=== PATIENT | female | born 1985 | race Caucasian/White ===

== ENCOUNTER 2017-05-20 11:07 | Emergency (ER) | payer SELFPAY ==
[~2017-05-20] VITALS: Ht 157.5 cm; Wt 70.0 kg
[2017-05-20 11:08] VITALS: BP 215/104; PULSE 89; RESP 16; TEMP 98.2; O2SAT 98
--- NOTE | 2017-05-20 11:29 | PD ---
HPI Chief Complaint: Oral / Dental Pain or Problem Time Seen by Provider: 11:24 Travel History International Travel<30 days: No Contact w/Intl Traveler<30days: No Traveled to known affect area: No History of Present Illness HPI 31-year-old female presents to the emergency department for evaluation of possible peritonsillar abscess. Patient states that she was admitted for approximate 4 days to [facility] in [place], [place]. She was discharged on Monday. She states that she has had some worsening pain recently. She reports decreased appetite. She denies any fevers, states she has not checked her temperature. Patient states that she has had multiple episodes of peritonsillar abscesses over the past 6 months. She states that she was discharged prescription for Keflex and clindamycin, but she only filled the Keflex. She states she cannot afford the $15 to peanut picker the clindamycin at [facility]. The patient admits to occasionally smoking crack and marijuana. Patient reports history PTSD and anxiety. She has no other complaints at this time. [facility] Past Medical History ADHD: Yes Anxiety: Yes Depression: Yes Cancer: No Cardiovascular Problems: No Endocrine: No Genitourinary: No Immune Disorder: No Neurologic: No Psychiatric: Yes (PT REPORTS BEING DIAGNOSED WITH PTSD, ADHD, BIPOLAR, SCHIZO AFFECTIVE ) Reproductive: No Respiratory: No Past Surgical History Abdominal Surgery: No Cardiac Surgery: No Ear Surgery: No Endocrine Surgery: No Eye Surgery: No Genitourinary Surgery: No Gynecologic Surgery: Yes (C SECTION) Oral Surgery: No Thoracic Surgery: No Social History Alcohol Use: Yes Tobacco Use: Yes Substance Use: Yes (MARIJUANA and Crack) Allergies-Medications (Allergen,Severity, Reaction): Coded Allergies: No Known Allergies (Unverified , 03/05/13) Reported Meds & Prescriptions Reported Meds & Active Scripts Active Review of Systems Except as stated in HPI: all other systems reviewed are Neg Physical Exam Narrative GENERAL: Well-nourished, well-developed female patient, ambulatory. Afebrile. SKIN: Focused skin assessment warm/dry. HEAD: Normocephalic. Atraumatic. ENT: Mucosa pink and moist. Bilateral tonsils are mildly erythematous without exudates, 2+. No kissing tonsils. No evidence of peritonsillar abscess on exam. No uvular edema. No uvular, palatal, or tonsillar deviation. Airway patent. Nasal turbinates appear normal without nasal blood, purulent drainage or septal hematoma. Bilateral tympanic membranes are clear without erythema or perforation. No Gino's angina. EYES: No scleral icterus. No injection or drainage. NECK: Supple, trachea midline. No JVD or lymphadenopathy. CARDIOVASCULAR: Regular rate and rhythm without murmurs, gallops, or rubs. RESPIRATORY: Breath sounds equal bilaterally. No accessory muscle use. Lungs sounds are clear to auscultation. GASTROINTESTINAL: Abdomen soft, non-tender, nondistended. MUSCULOSKELETAL: No cyanosis, or edema. BACK: Nontender without obvious deformity. No CVA tenderness. Data Data Last Documented VS Vital Signs Date Time Temp Pulse Resp B/P Pulse Ox O2 Delivery O2 Flow Rate FiO2 05/20/17 11:08 98.2 89 16 215/104 98 Orders Iv Access Insert/Monitor (05/20/17 11:24) Complete Blood Count With Diff (05/20/17 11:24) Basic Metabolic Panel (Bmp) (05/20/17 11:24) Sodium Chlor 0.9% 1000 Ml Inj (Ns 1000 M (05/20/17 11:30) Ketorolac Inj (Toradol Inj) (05/20/17 11:30) Clindamycin (Cleocin) (05/20/17 12:15) Labs Laboratory Tests Test 05/20/17 11:30 White Blood Count 12.8 TH/MM3 Red Blood Count 4.53 MIL/MM3 Hemoglobin 13.0 GM/DL Hematocrit 39.1 % Mean Corpuscular Volume 86.2 FL Mean Corpuscular Hemoglobin 28.7 PG Mean Corpuscular Hemoglobin 33.3 % Concent Red Cell Distribution Width 13.5 % Platelet Count 347 TH/MM3 Mean Platelet Volume 8.8 FL Neutrophils (%) (Auto) 57.6 % Lymphocytes (%) (Auto) 32.1 % Monocytes (%) (Auto) 7.3 % Eosinophils (%) (Auto) 2.3 % Basophils (%) (Auto) 0.7 % Neutrophils # (Auto) 7.4 TH/MM3 Lymphocytes # (Auto) 4.1 TH/MM3 Monocytes # (Auto) 0.9 TH/MM3 Eosinophils # (Auto) 0.3 TH/MM3 Basophils # (Auto) 0.1 TH/MM3 CBC Comment DIFF FINAL Differential Comment Sodium Level 142 MEQ/L Potassium Level 3.3 MEQ/L Chloride Level 108 MEQ/L Carbon Dioxide Level 24.1 MEQ/L Anion Gap 10 MEQ/L Blood Urea Nitrogen 5 MG/DL Creatinine 0.62 MG/DL Estimat Glomerular Filtration 112 ML/MIN Rate Random Glucose 94 MG/DL Calcium Level 8.7 MG/DL [facility] Medical Decision Making Medical Screen Exam Complete: Yes Emergency Medical Condition: Yes Medical Record Reviewed: Yes Differential Diagnosis Pharyngitis versus strep pharyngitis versus peritonsillar abscess Narrative Course 31-year-old female presents to the emergency department for evaluation of sore throat. She was diagnosed with peritonsillar abscess was discharged on Monday from a different hospital. She started her Keflex, but did not fill her clindamycin. On exam, patient has 2+ bilaterally without erythema, no exudates. No evidence of peritonsillar abscess. Patient is handling her secretions well and is chewing gum during my exam. IV is established. CBC, BMP are ordered and pending. Patient is given normal saline 1 L IV bolus and 30 mg Toradol IV. CBC shows leukocytosis 12.8. BMP shows no acute abnormality. Patient is given a dose of clindamycin 300 mg by mouth in the emergency department. Patient states that she no longer has her prescription for clindamycin. I will give her a new prescription for clindamycin. She is encouraged to peanut picker the prescription as it is cheapest at [facility]. She verbalizes agreement and understanding. She is to follow-up with an ENT physician. She is return here for any acute worsening of symptoms. The patient was discharged in stable condition with instructions, including return instructions and follow up instructions. Diagnosis Primary Impression: Pharyngitis Qualified Code: J02.9 - Pharyngitis, unspecified etiology Referrals: Ear / Nose / Throat Specialist call for appointment Patient Instructions: General Instructions, Pharyngitis (ED) Additional Instructions: Continue Keflex as directed until gone. Take clindamycin as directed until gone. This is cheapest at [facility]. Tylenol every 4 hours as needed for pain. Ibuprofen every 6-8 hours as needed for pain. Follow-up with ENT. Return to the emergency department for any acute worsening of symptoms. Med/Other Pt SpecificInfo: Prescription(s) given Scripts Clindamycin 150 Mg [id number] Mg PO Q6H 10 Days Ref 0 Prov:Aleja Patel 05/20/17 Disposition: 01 DISCHARGE HOME Condition: Stable Aleja Patel May 20, 2017 11:29
[2017-05-20] MEDS ORDERED: KETOROLAC TROMETHAMINE 30 MG/ML (IVP) VIAL IV PUSH ONE (11:30)
[2017-05-20] MEDS ORDERED: SODIUM CHLOR 0.9% 1000 ML INJ 1,000 ML IV ONE (11:30)
[2017-05-20 11:52] LABS: AUTOMATED NEUTROPHIL # 7.4 TH/MM3 (1.8-7.7); BASOPHIL # 0.1 TH/MM3 (0-0.2); BASOPHIL % 0.7 % (0.0-2.0); EOSINOPHIL # 0.3 TH/MM3 (0-0.4); EOSINOPHIL % 2.3 % (0.0-4.0); HEMATOCRIT 39.1 % (35.0-46.0); HEMO FLAGS DIFF FINAL; LYMPH % 32.1 % (9.0-44.0); LYMPHOCYTE # 4.1 TH/MM3 (1.0-4.8); MEAN CELL VOLUME 86.2 FL (80.0-100.0); MEAN CORPUSCULAR HEMOGLOBIN 28.7 PG (27.0-34.0); MEAN CORPUSCULAR HGB CONC 33.3 % (32.0-36.0); MONO % 7.3 % (0.0-8.0); NEUT % 57.6 % (16.0-70.0); PLATELET COUNT 347 TH/MM3 (150-450); RED BLOOD COUNT 4.53 MIL/MM3 (4.00-5.30); RED CELL DISTRIBUTION WIDTH 13.5 % (11.6-17.2); WHITE BLOOD COUNT 12.8 TH/MM3 (4.0-11.0)
[2017-05-20 12:11] LABS: BICARBONATE 24.1 MEQ/L (21.0-32.0); POTASSIUM 3.3 MEQ/L (3.5-5.1)
[2017-05-20] MEDS ORDERED: CLINDAMYCIN 150 MG CAP PO ONE (12:15)
[2017-05-20] MEDS ORDERED: CLIN1CAP5 PO (12:17)
[2017-05-20 12:26] VITALS: BP 117/64; PULSE 85; RESP 18; O2SAT 99
== END 2017-05-20 12:50 | disposition home or self-care (01) ==
LOC: NEPC 11:07
DX: J02.9 Acute pharyngitis, unspecified (principal); Z72.0 Tobacco use
CPT/HCPCS: 80048; 85025; 96361; 96374; 99284; J1885; J7030

== ENCOUNTER 2018-04-02 18:25 | Emergency (ER) | payer OTHER ==
[~2018-04-02 18:25] MED LIST: CLIN150C14 PO
[2018-04-02 19:28] VITALS: BP 129/84; PULSE 101; RESP 18; TEMP 99.2; O2SAT 100
[2018-04-02 23:48] VITALS: BP 114/73; PULSE 103; RESP 20; TEMP 101; O2SAT 97
[2018-04-02] MEDS ORDERED: SODIUM CHLOR 0.9% 1000 ML INJ 1,000 ML IV SCH (23:53)
--- NOTE | 2018-04-02 23:56 | PD ---
HPI Chief Complaint: ENT Complaint Time Seen by Provider: 23:47 Travel History International Travel<30 days: No Contact w/Intl Traveler<30days: No Traveled to known affect area: No History of Present Illness HPI This is a 32-year-old female presents for evaluation of sore throat. Symptoms started yesterday. Symptoms are moderate, aggravated by swallowing, burning sensation, no alleviating factors. Associated fevers, chills. Denies cough, congestion, rash or recent travel. No sick contacts. No other complaints at this time. PFSH Past Medical History ADHD: Yes Anxiety: Yes Depression: Yes Cancer: No Cardiovascular Problems: No Diminished Hearing: No Endocrine: No Gastrointestinal Disorders: No Genitourinary: No Immune Disorder: No Implanted Vascular Access Dvce: No Neurologic: No Psychiatric: Yes (PT REPORTS BEING DIAGNOSED WITH PTSD, ADHD, BIPOLAR, SCHIZO AFFECTIVE ) Reproductive: No Respiratory: No Immunizations Current: Yes Tetanus Vaccination: Unknown Influenza Vaccination: No ?: Unknown Past Surgical History Abdominal Surgery: No Cardiac Surgery: No Ear Surgery: No Endocrine Surgery: No Eye Surgery: No Genitourinary Surgery: No Gynecologic Surgery: Yes (C SECTION) Neurologic Surgery: No Oral Surgery: No Thoracic Surgery: No Other Surgery: Yes Social History Alcohol Use: No Tobacco Use: Yes Substance Use: No Allergies-Medications (Allergen,Severity, Reaction): Coded Allergies: No Known Allergies (Unverified Adverse Reaction, Unknown, 04/02/18) Reported Meds & Prescriptions Reported Meds & Active Scripts Active Prednisone 20 Mg Tab 20 Mg PO BID 5 Days Magic Mouthwash Adult Liq (Multi-Ingredient Mouthwash/Gargle) 120 Ml Susp 10 Ml SWISH-SPIT ACHS Each 5mL contains: Nystatin 200,000units, Diphenhydramine 4.25mg, Viscous Lidocaine 10mg, Spring syrup 0.8 mL Amoxicillin 875 Mg Tab 875 Mg PO BID 10 Days Review of Systems Except as stated in HPI: all other systems reviewed are Neg Physical Exam Narrative GENERAL: Well-developed well-nourished female in no acute distress SKIN: Warm and dry. HEAD: Atraumatic. Normocephalic. EYES: Pupils equal and round. No scleral icterus. No injection or drainage. ENT: No nasal bleeding or discharge. Mucous membranes pink and moist. There is tonsillar hypertrophy bilaterally with associated erythema. Uvula is midline. NECK: Trachea midline. No JVD. There is tender anterior cervical lymphadenopathy. CARDIOVASCULAR: Regular rate and rhythm. No murmur appreciated. RESPIRATORY: No accessory muscle use. Clear to auscultation. Breath sounds equal bilaterally. GASTROINTESTINAL: Abdomen soft, non-tender, nondistended. Hepatic and splenic margins not palpable. MUSCULOSKELETAL: No obvious deformities. No clubbing. No cyanosis. No edema. NEUROLOGICAL: Awake and alert. No obvious cranial nerve deficits. Motor grossly within normal limits. Normal speech. PSYCHIATRIC: Appropriate mood and affect; insight and judgment normal. Data Data Last Documented VS Vital Signs Date Time Temp Pulse Resp B/P (MAP) Pulse Ox O2 Delivery O2 Flow Rate FiO2 04/03/18 00:39 16 04/02/18 23:48 101.0 103 114/73 (87) 97 Room Air Orders Orders Group A Rapid Strep Screen (04/02/18 23:42) Complete Blood Count With Diff (04/02/18 23:53) Comprehensive Metabolic Panel (04/02/18 23:53) Prothrombin Time / Inr (Pt) (04/02/18 23:53) Act Partial Throm Time (Ptt) (04/02/18 23:53) Iv Access Insert/Monitor (04/02/18 23:53) Sodium Chlor 0.9% 1000 Ml Inj (Ns 1000 M (04/02/18 23:53) Ketorolac Inj (Toradol Inj) (04/03/18 00:00) Clindamycin 900 Mg/Ns Premix (Cleocin 90 (04/03/18 00:00) Dexamethasone Inj (Decadron Inj) (04/03/18 00:00) Ed Urine Pregnancytest Poc (04/02/18 23:53) Ct Soft Tiss Neck W Iv Cont (04/03/18 ) Iohexol 350 Inj (Omnipaque 350 Inj) (04/03/18 00:20) Ed Discharge Order (04/03/18 01:42) Labs Laboratory Tests Test 04/03/18 00:00 White Blood Count 20.8 TH/MM3 Red Blood Count 4.61 MIL/MM3 Hemoglobin 12.9 GM/DL Hematocrit 38.9 % Mean Corpuscular Volume 84.5 FL Mean Corpuscular Hemoglobin 27.9 PG Mean Corpuscular Hemoglobin Concent 33.0 % Red Cell Distribution Width 14.0 % Platelet Count 315 TH/MM3 Mean Platelet Volume 8.9 FL Neutrophils (%) (Auto) 79.0 % Lymphocytes (%) (Auto) 12.2 % Monocytes (%) (Auto) 7.1 % Eosinophils (%) (Auto) 1.3 % Basophils (%) (Auto) 0.4 % Neutrophils # (Auto) 16.5 TH/MM3 Lymphocytes # (Auto) 2.5 TH/MM3 Monocytes # (Auto) 1.5 TH/MM3 Eosinophils # (Auto) 0.3 TH/MM3 Basophils # (Auto) 0.1 TH/MM3 CBC Comment DIFF FINAL Differential Comment Prothrombin Time 11.1 SEC Prothromb Time International Ratio 1.1 RATIO Activated Partial Thromboplast Time 25.0 SEC Blood Urea Nitrogen 11 MG/DL Creatinine 0.60 MG/DL Random Glucose 94 MG/DL Total Protein 7.5 GM/DL Albumin 3.5 GM/DL Calcium Level 9.3 MG/DL Alkaline Phosphatase 116 U/L Aspartate Amino Transf (AST/SGOT) 46 U/L Alanine Aminotransferase (ALT/SGPT) 75 U/L Total Bilirubin 0.4 MG/DL Sodium Level 141 MEQ/L Potassium Level 3.7 MEQ/L Chloride Level 105 MEQ/L Carbon Dioxide Level 25.9 MEQ/L Anion Gap 10 MEQ/L Estimat Glomerular Filtration Rate 116 ML/MIN MDM Medical Decision Making Medical Screen Exam Complete: Yes Emergency Medical Condition: Yes Medical Record Reviewed: Yes Differential Diagnosis Tonsillitis, peritonsillar abscess, retropharyngeal abscess, herpangina, infectious mononucleosis Narrative Course Lab work, rapid strep screen, CT soft tissue neck ordered. The patient was given IV Decadron, Toradol, fluids, clindamycin. CT soft tissue neck reveals CONCLUSION: 1. No evidence of any significant soft tissue swelling or loculated fluid collections adjacent to the mandible. 2. Chronic sinus disease in the ethmoid sinuses bilaterally and right maxillary sinus. 3. Nonspecific mildly prominent cervical lymph nodes bilaterally. 4. The tonsils are diffusely enlarged and prominent bilaterally. Rapid strep screen is positive. Lab work reveals leukocytosis. Upon reexamination the patient feels improved. At this point time the plan is to discharge the patient with prescriptions for amoxicillin, prednisone, Magic mouthwash. Discussed signs and symptoms that would warrant returning to the emergency room. She is stable for discharge. Diagnosis Primary Impression: Tonsillitis Additional Instructions: Medication as prescribed. Stay well hydrated and well-nourished. Take Tylenol Motrin for pain and fever per dosing instructions on the bottle. Return for any acutely new or worsening symptoms. Med/Other Pt SpecificInfo: Prescription(s) given Scripts Prednisone (Prednisone) 20 Mg Tab 20 MG PO BID for 5 Days, #10 TAB 0 Refills Prov: Jackie Robledo DO 04/03/18 Loydhafc-Xcekoomxgzqjgkd-Cojkqkicp Liq (Magic Mouthwash Adult Liq) 120 Ml Susp 10 ML SWISH-SPIT ACHS for Mouth sores, #120 ML 0 Refills Each 5mL contains: Nystatin 200,000units, Diphenhydramine 4.25mg, Viscous Lidocaine 10mg, Spring syrup 0.8 mL Prov: Jackie Robledo DO 04/03/18 Amoxicillin (Amoxicillin) 875 Mg Tab 875 MG PO BID for Infection for 10 Days, #20 TAB 0 Refills Prov: Jackie Robledo DO 04/03/18 Disposition: 01 DISCHARGE HOME Condition: Stable [facility] Apr 02, 2018 23:56
[2018-04-03] MEDS ORDERED: CLINDAMYCIN 900 MG/NS PREMIX 50 ML IV ONE
[2018-04-03] MEDS ORDERED: KETOROLAC TROMETHAMINE 30 MG/ML (IVP) VIAL IVP ONE
[2018-04-03] MEDS ORDERED: DEXAMETHASONE SOD PHOS 20 MG/5 ML VIAL IV PUSH ONE
[2018-04-03 00:13] LABS: AUTOMATED NEUTROPHIL # 16.5 TH/MM3 (1.8-7.7); BASOPHIL # 0.1 TH/MM3 (0-0.2); BASOPHIL % 0.4 % (0.0-2.0); EOSINOPHIL # 0.3 TH/MM3 (0-0.4); EOSINOPHIL % 1.3 % (0.0-4.0); HEMATOCRIT 38.9 % (35.0-46.0); HEMOGLOBIN 12.9 GM/DL (11.6-15.3); LYMPH % 12.2 % (9.0-44.0); LYMPHOCYTE # 2.5 TH/MM3 (1.0-4.8); MEAN CELL VOLUME 84.5 FL (80.0-100.0); MEAN CORPUSCULAR HEMOGLOBIN 27.9 PG (27.0-34.0); MEAN PLATELET VOLUME 8.9 FL (7.0-11.0); MONO % 7.1 % (0.0-8.0); MONOCYTE # 1.5 TH/MM3 (0-0.9); PLATELET COUNT 315 TH/MM3 (150-450); RED BLOOD COUNT 4.61 MIL/MM3 (4.00-5.30); WHITE BLOOD COUNT 20.8 TH/MM3 (4.0-11.0)
[2018-04-03] MEDS ORDERED: IOHEXOL 350 MG/ML 10 ML VIAL (for RAD DIAG) IVCONTRAST ONE (00:20)
[2018-04-03 00:24] LABS: INTERNATIONAL NORMALIZED RATIO 1.1 RATIO; PROTHROMBIN TIME - PATIENT 11.1 SEC (9.8-11.6)
[2018-04-03 00:31] LABS: ALBUMIN 3.5 GM/DL (3.4-5.0); AST (GOT) 46 U/L (15-37); BICARBONATE 25.9 MEQ/L (21.0-32.0); BLOOD UREA NITROGEN 11 MG/DL (7-18); CALCIUM 9.3 MG/DL (8.5-10.1); CHLORIDE 105 MEQ/L (98-107); GLOMERULAR FILTRATION RATE 116 ML/MIN (>89); GLUCOSE,RANDOM 94 MG/DL (74-106); SODIUM (NA) 141 MEQ/L (136-145)
[2018-04-03 00:32] LABS: ALT (GPT) 75 U/L (10-53)
[2018-04-03 00:34] LABS: ALKALINE PHOSPHATASE 116 U/L (45-117); TOTAL BILIRUBIN ADULT 0.4 MG/DL (0.2-1.0); TOTAL PROTEIN 7.5 GM/DL (6.4-8.2)
[2018-04-03 00:39] VITALS: RESP 16
--- NOTE | 2018-04-03 00:48 | RADRPT ---
EXAM DATE: 04/03/2018 12:31 AM EDT AGE/SEX: 32 years / Female INDICATIONS: Bilateral jaw pain. Evaluate for dental abscess. CLINICAL DATA: This is the patient's initial encounter. Patient reports that signs and symptoms have been present for 2 days and indicates a pain score of 5/10. MEDICAL/SURGICAL HISTORY: None. None. RADIATION DOSE: 12.84 CTDI (mGy) COMPARISON: No prior [facility] exams available for comparison. TECHNIQUE: Helical acquisition was performed using a multirow detector CT scanner during the adminis tration of 65 ml Omnipaque 350 (iohexol) nonionic water-soluble contrast as a cumulative dose for mu ltiple exams. Using automated exposure control and adjustment of the mA and/or kV according to patie nt size, radiation dose was kept as low as reasonably achievable to obtain optimal diagnostic quality images. FINDINGS: Nasopharynx: The nasopharyngeal airway has a normal configuration. No mucosal thickening or mass is seen. Oropharynx: The intrinsic muscles of the tongue are symmetric. Both tonsils are prominent bilaterall y.. The prevertebral soft tissues are not thickened. Larynx: The supraglottic, glottic, and infraglottic structures are intact. Parapharyngeal: The parapharyngeal space is intact. Salivary Glands: The parotid and submandibular glands are intact. Lymph Nodes: There is some nonspecific mildly prominent lymph nodes along both cervical chains. Thyroid: Homogeneous enhancement without evidence of nodule. Bones: Unremarkable. There is chronic sinus disease in the ethmoid sinuses bilaterally. Moderate opacification of the right maxillary sinus. Bony structures of the mandible are grossly intact. No adjacent or significant soft tissue swelling i s seen. There is no loculated fluid collections. CONCLUSION: 1. No evidence of any significant soft tissue swelling or loculated fluid collections adjacent to th e mandible. 2. Chronic sinus disease in the ethmoid sinuses bilaterally and right maxillary sinus. 3. Nonspecific mildly prominent cervical lymph nodes bilaterally. 4. The tonsils are diffusely enlarged and prominent bilaterally. Electronically signed by: Khoa Smith MD 04/03/2018 12:46 AM EDT
[2018-04-03] MEDS ORDERED: AMOX875T PO (01:42)
[2018-04-03] MEDS ORDERED: PRED20 PO (01:42)
[2018-04-03] MEDS ORDERED: MAGICADU2 SWISH-SPIT (01:42)
== END 2018-04-03 02:10 | disposition home or self-care (01) ==
LOC: NEPD 18:25
DX: J03.90 Acute tonsillitis, unspecified (principal); Z72.0 Tobacco use
CPT/HCPCS: 70491; 80053; 84703; 85025; 85610; 85730; 87880; 96374; 96375; 99284; J1100; J1885; J7030; Q9967